=== PATIENT | male | born 1985 | race Caucasian/White ===

== ENCOUNTER 2023-09-30 09:42 | Emergency (ER) | payer BC ==
[~2023-09-30] VITALS: Ht 185.4 cm; Wt 104.3 kg
[2023-09-30 10:03] VITALS: O2SAT 98
== END 2023-09-30 10:15 | disposition left against medical advice (07) ==
LOC: ER 09:50
DX: M25.532 Pain in left wrist (principal); Z53.21 Procedure and treatment not carried out due to patient leaving prior to being seen by health care provider
CPT/HCPCS: A4606; A4663